=== PATIENT | male | born 1985 | race Caucasian/White ===

== ENCOUNTER 2016-11-21 14:34 | Emergency (ER) | payer OTHER ==
[~2016-11-21] VITALS: Ht 177.8 cm; Wt 94.8 kg
[2016-11-21 14:35] VITALS: BP 140/94
[2016-11-21] MEDS ORDERED: AMOXICILLIN 50500 MG PO (14:59)
== END 2016-11-21 15:51 | disposition home or self-care (01) ==
LOC: ER 14:34
DX: J02.0 Streptococcal pharyngitis (principal); F17.210 Nicotine dependence, cigarettes, uncomplicated; F12.10 Cannabis abuse, uncomplicated